=== PATIENT | female | born 1935 | race Caucasian/White ===

== ENCOUNTER 2016-04-25 15:54 | Emergency (ER) | payer OTHER, MEDICARE ==
[~2016-04-25] VITALS: Ht 165.1 cm; Wt 62.1 kg
[~2016-04-25 15:54] MED LIST: LISI-209 PO; PRO40 PO; PROP50TA3 PO
[2016-04-25 16:00] VITALS: BP 158/88; PULSE 85; RESP 17; TEMP 97.8; O2SAT 95
--- NOTE | 2016-04-25 16:00 | NUR ---
Placed in room 01. Placed on monitoring specialist, blood pressure machine and pulse oximeter. To gown for exam. Side rails up. Report given to CRISTOBAL Orellana.
--- NOTE | 2016-04-25 16:06 | NUR ---
ER MD Patel at bedside evaluating the patient
--- NOTE | 2016-04-25 16:10 | NUR ---
# 20 gauge angiocath placed to lh. Use of asceptic technique. Opsite placed over site. Blood return noted. Blood for lab drawn from site. Flushed with 10 cc of normal saline. No evidence of infiltration noted. Patient tolerated well.
[2016-04-25] MEDS ORDERED: NACL 0.9% 1,000 ML IV ONE (16:15)
[2016-04-25] MEDS ORDERED: MECLIZINE HCL 25 MG TABLET (ANITVERT) PO ONE (16:15)
[2016-04-25] MEDS ORDERED: METH10TA80 PO (16:20)
--- NOTE | 2016-04-25 16:20 | NUR ---
Medication reconciliation completed with information provided by patient. Any prior medication reconciliation on file was reviewed and corrected.
[2016-04-25] MEDS ORDERED: DEXAMETHASONE SOD PHOSPHATE 10 MG/ML VIAL IVP ONE (16:30)
[2016-04-25] MEDS ORDERED: PROCHLORPERAZINE EDISYLATE 10 MG/2 ML VIAL IVP ONE (16:30)
[2016-04-25] MEDS ORDERED: KETOROLAC TROMETHAMINE 30 MG VIAL IVP ONE (16:30)
[2016-04-25] MEDS ORDERED: ONDANSETRON HCL 4 MG/2 ML VIAL IVP ONE (16:30)
[2016-04-25 16:45] LABS: BASOPHILS % (AUTO) 0.2 % (0.0-2.0); EOSINOPHILS % (AUTO) 0.2 % (0.0-4.0); HEMATOCRIT 33.6 % (36-48); HEMOGLOBIN 10.7 g/dL (12.0-16.0); LYMPHOCYTES % (AUTO) 24.2 % (20.5-51.5); MEAN CORPUSCULAR HEMOGLOBIN 20 pg (27-31); MEAN CORPUSCULAR HGB CONC 32 % (32-36); MEAN CORPUSCULAR VOLUME 64 fL (79.0-98.0); MONOCYTES # (AUTO) 0.5 K/uL (0.0-1.0); MONOCYTES % (AUTO) 5.7 % (1.7-9.3); NEUTROPHILS # (AUTO) 5.7 K/uL (1.8-7.7); NEUTROPHILS % (AUTO) 69.7 % (40.0-70.0); PLATELET COUNT (AUTO) 187 K/uL (130-430); RED BLOOD CELL COUNT(AUTO) 5.26 MIL/uL (4.2-6.2); RED CELL DISTRIBUTION WIDTH 14.4 % (9.0-15.0); WHITE BLOOD COUNT (AUTO) 8.2 K/uL (4.8-10.8)
[2016-04-25 16:51] LABS: PROTHROMBIN TIME 11.2 SECS (9.5-12.5)
[2016-04-25 16:55] LABS: ANION GAP 3 (5-15); CALCIUM 9.2 mg/dL (8.4-11.0); CHLORIDE 103 mmol/L (98-107); CREATININE 0.81 mg/dL (0.55-1.30); GLUCOSE 128 mg/dL (70-99); POTASSIUM 4.4 mmol/L (3.5-5.1); SODIUM SERUM 137 mmol/L (136-145); UREA NITROGEN, BLOOD 22 mg/dL (8-21)
[2016-04-25 16:59] LABS: ALANINE AMINOTRANSFERASE 29 U/L (12-78); ASPARTATE AMINOTRANSFERASE 22 U/L (10-37); TOTAL BILIRUBIN 0.5 mg/dL (0.0-1.0); TOTAL PROTEIN, SERUM 7.3 g/dL (6.4-8.3)
--- NOTE | 2016-04-25 19:05 | NUR ---
ER at bedside examining patient.
--- NOTE | 2016-04-25 19:13 | NUR ---
Report given to CRISTOBAL Denson via SBAR method.
[2016-04-25] MEDS ORDERED: MAG HYDROX/AL HYDROX/SIMETH 30 ML, LIDOCAINE VISCOUS 2% 15ML (PO) 10 ML, BELLADONNA ALK... PO ONE ×3 (19:15)
[2016-04-25 19:30] VITALS: BP 138/71; PULSE 65; RESP 18; TEMP 97.8; O2SAT 98
--- NOTE | 2016-04-25 19:30 | NUR ---
Patient given written and verbal discharge instructions and verbalizes understanding. ER MD discussed with patient the results and treatment provided. Patient in stable condition. ID arm band removed. IV catheter removed intact and dressing applied, no active bleeding. Rx of PEPCID 40 MG, ACETAMINOPHEN 500 MG TAB AND ZOFRAN 4 MG ODT given. Patient educated on pain management and to follow up with PMD. Pain Scale 0/10. Opportunity for questions provided and answered.
== END 2016-04-25 19:30 | disposition home or self-care (01) ==
LOC: SED 15:54
DX: K80.50 Calculus of bile duct without cholangitis or cholecystitis without obstruction (principal); I10 Essential (primary) hypertension; R42 Dizziness and giddiness; Z90.49 Acquired absence of other specified parts of digestive tract; Z90.710 Acquired absence of both cervix and uterus
CPT/HCPCS: 36415; 70450; 74176; 80053; 83605; 83690; 85025; 85610; 85730; 87040; 96361; 96374; 96375; 99285; J0780; J1100; J1885; J2001; J2405; J7030; J8597

== ENCOUNTER 2019-04-11 12:24 | Emergency (ER) | payer OTHER, MEDICARE ==
[~2019-04-11] VITALS: Ht 157.5 cm; Wt 72.6 kg
[~2019-04-11 12:24] MED LIST changes: -LISI-209 PO; +LISI-219 PO; +METH10TA80 PO; -PRO40 PO; -PROP50TA3 PO
[2019-04-11 12:47] VITALS: BP_SYST 143
--- NOTE | 2019-04-11 12:49 | NUR ---
Patient to ER bed 2 to gown for evaluation. Side rails up. Report given to Anne JAIN.
--- NOTE | 2019-04-11 12:52 | NUR ---
ECG done at bedside as ordered by Dr. Ignacio. Patient tolerated the procedure well. Report given to
--- NOTE | 2019-04-11 12:55 | NUR ---
Patient arrived in the ED c/o hypotension, weakness, and not feeling good. Denied any chest pain or shortness of breath. Denied any fevers, nausea, vomiting, or chills. Patient is alert and oriented x4, respirations even and unlabored, speaking in full sentences, ambulating with a steady gait. VSS, pain level 0/10. Informed of wait time. Instructed to notify ED staff for any changes in condition or worsening of symptoms. Patient verbalized understanding.
--- NOTE | 2019-04-11 13:07 | NUR ---
# 22 gauge angiocath placed to LFA. Use of asceptic technique. Opsite placed over site. Blood return noted. Blood for lab drawn from site. Flushed with 10 cc of normal saline. No evidence of infiltration noted. Patient tolerated well.
--- NOTE | 2019-04-11 13:17 | NUR ---
ER Dr. Ignacio at bedside examining patient.
[2019-04-11] MEDS ORDERED: MED4 PO (13:28)
[2019-04-11] MEDS ORDERED: AMLO5TAB4 PO (13:28)
[2019-04-11] MEDS ORDERED: IBUP-1619 PO (13:28)
[2019-04-11] MEDS ORDERED: FURO-149 PO (13:28)
[2019-04-11] MEDS ORDERED: FAMO20TA8 PO (13:28)
[2019-04-11] MEDS ORDERED: LISI-652 PO (13:28)
--- NOTE | 2019-04-11 13:35 | NUR ---
Patient ambulated to the bathroom with a steady gait. Urine specimen collected. Patient tolerated the activity well.
--- NOTE | 2019-04-11 13:38 | NUR ---
X-ray done at bedside as ordered by Dr. Ignacio. Patient tolerated the procedure well.
[2019-04-11 14:16] LABS: BASOPHILS % (AUTO) 0.3 % (0.0-2.0); EOSINOPHILS % (AUTO) 0.5 % (0.0-4.0); HEMATOCRIT 30.8 % (36-48); HEMOGLOBIN 9.7 g/dL (12.0-16.0); LYMPHOCYTES # (AUTO) 1.5 K/uL (1.0-5.5); LYMPHOCYTES % (AUTO) 20.8 % (20.5-51.5); MEAN CORPUSCULAR HEMOGLOBIN 20 pg (27-31); MEAN CORPUSCULAR HGB CONC 32 % (32-36); MEAN CORPUSCULAR VOLUME 65 fL (79.0-98.0); MONOCYTES # (AUTO) 0.6 K/uL (0.0-1.0); MONOCYTES % (AUTO) 7.9 % (1.7-9.3); NEUTROPHILS # (AUTO) 5.1 K/uL (1.8-7.7); NEUTROPHILS % (AUTO) 70.5 % (40.0-70.0); PLATELET COUNT (AUTO) 225 K/uL (130-430); RED BLOOD CELL COUNT(AUTO) 4.76 MIL/uL (4.2-6.2); WHITE BLOOD COUNT (AUTO) 7.3 K/uL (4.8-10.8)
[2019-04-11 14:19] LABS: ANION GAP 5 (5-15); CALCIUM 8.8 mg/dL (8.4-11.0); CHLORIDE 99 mmol/L (98-107); CREATININE 0.74 mg/dL (0.55-1.30); GLUCOSE 96 mg/dL (70-99); POTASSIUM 4.7 mmol/L (3.5-5.1); SODIUM SERUM 134 mmol/L (136-145); UREA NITROGEN, BLOOD 22 mg/dL (8-21)
[2019-04-11 14:25] LABS: ALANINE AMINOTRANSFERASE 26 U/L (12-78); ALBUMIN 3.5 g/dL (3.4-4.8); ASPARTATE AMINOTRANSFERASE 27 U/L (10-37); LIPASE 143 U/L (73-393); TOTAL BILIRUBIN 0.4 mg/dL (0.0-1.0)
--- NOTE | 2019-04-11 15:45 | NUR ---
Patient given written and verbal discharge instructions and verbalizes understanding. ER MD discussed with patient the results and treatment provided. Patient in stable condition. ID arm band removed. IV catheter removed intact and dressing applied, no active bleeding. Rx of Tramadol given. Patient educated on pain management and to follow up with PMD. Pain Scale 0/10. Opportunity for questions provided and answered. Medication side effect fact sheet provided.
[2019-04-11 16:03] VITALS: BP_SYST 138
== END 2019-04-11 16:03 | disposition home or self-care (01) ==
LOC: SED 12:24
DX: R53.1 Weakness (principal); M19.90 Unspecified osteoarthritis, unspecified site; I10 Essential (primary) hypertension; Z79.899 Other long term (current) drug therapy; Z90.49 Acquired absence of other specified parts of digestive tract
CPT/HCPCS: 36415; 71045; 80053; 82550-TC; 83690-TC; 84484; 85025; 93005; 99285

== ENCOUNTER 2021-04-17 15:05 | Emergency (ER) | payer OTHER, MEDICARE ==
[~2021-04-17] VITALS: Ht 165.1 cm; Wt 53.1 kg
[~2021-04-17 15:05] MED LIST changes: +AMLO5TAB4 PO; +FAMO20TA8 PO; +FURO-149 PO; +IBUP-1619 PO; +LISI-652 PO; +MED4 PO
[2021-04-17 15:10] VITALS: BP_SYST 149
--- NOTE | 2021-04-17 15:10 | NUR ---
PT TRIAGED AND PLACED IN WAITING ROOM FOR AVAILABLE BED IN MAIN ED
--- NOTE | 2021-04-17 15:15 | NUR ---
PT BIB SON FROM HOME C/O CHRONIC BACK PAIN, HX OF ARTHRITIS, TAKING TYLENOL AND IBUPROFEN AT HOME WITHOUT RELIEF. HTN AT HOME, BP UPON ARRIVAL 149/78. PT IN WHEELCHAIR. AAOX3, VSS
--- NOTE | 2021-04-17 16:09 | NUR ---
ER DR. KAHN EXAMINING PT IN TRIAGE
[2021-04-17] MEDS ORDERED: CYCL10TA24 PO (16:22)
[2021-04-17] MEDS ORDERED: CYCLOBENZAPRINE HCL 10 MG TABLET (FLEXERIL) PO ONE (16:30)
--- NOTE | 2021-04-17 16:44 | NUR ---
Patient given written and verbal discharge instructions and verbalizes understanding. ER MD discussed with patient the results and treatment provided. Patient in stable condition. ID arm band removed. Rx of FLEXRIL given. Patient educated on pain management and to follow up with PMD. Pain Scale 0/10. Opportunity for questions provided and answered. Medication side effect fact sheet provided.
[2021-04-17 16:49] VITALS: BP_SYST 149
== END 2021-04-17 16:44 | disposition home or self-care (01) ==
LOC: SED 15:05
DX: M54.50 Low back pain, unspecified (principal); I10 Essential (primary) hypertension; Z79.899 Other long term (current) drug therapy
CPT/HCPCS: 99283

== ENCOUNTER 2021-04-23 14:24 | Outpatient (CLI) | payer OTHER, MEDICARE ==
[~2021-04-23 14:24] MED LIST changes: +CYCL10TA24 PO
== END 2021-04-23 20:12 | disposition home or self-care (01) ==
LOC: SUS 14:24
DX: N28.1 Cyst of kidney, acquired (principal); R10.9 Unspecified abdominal pain; R10.2 Pelvic and perineal pain; I70.90 Unspecified atherosclerosis
CPT/HCPCS: 76700-TC; 76856-TC

== ENCOUNTER 2021-04-30 16:53 | Emergency (ER) | payer OTHER, MEDICARE ==
[~2021-04-30] VITALS: Ht 165.1 cm; Wt 51.3 kg
[2021-04-30 16:53] VITALS: BP_SYST 156
[2021-04-30] MEDS ORDERED: OXYCODONE/ACETAMINOPHEN 5-325 TABLET PO ONE (18:15)
[2021-04-30] MEDS ORDERED: HYDR-3917 PO (18:51)
[2021-04-30 18:58] VITALS: BP_SYST 156
== END 2021-04-30 18:58 | disposition home or self-care (01) ==
LOC: SED 16:53
DX: M54.50 Low back pain, unspecified (principal); I10 Essential (primary) hypertension
CPT/HCPCS: 99283

== ENCOUNTER 2022-11-23 09:31 | Inpatient (IN) | payer MEDICARE, OTHER ==
[~2022-11-23] VITALS: Ht 162.6 cm; Wt 46.4 kg
[~2022-11-23 09:31] MED LIST changes: +HYDR-3917 PO
[2022-11-23 09:42] VITALS: BP_SYST 138; PULSE 72; RESP 20; TEMP 98.3; O2SAT 97
[2022-11-23 10:13] LABS: BASOPHILS % (AUTO) 0.4 % (0.0-2.0); EOSINOPHILS % (AUTO) 0.3 % (0.0-4.0); HEMATOCRIT 31.3 % (36-48); HEMOGLOBIN 9.8 g/dL (12.0-16.0); LYMPHOCYTES # (AUTO) 0.7 K/uL (1.0-5.5); LYMPHOCYTES % (AUTO) 6.3 % (20.5-51.5); MEAN CORPUSCULAR HEMOGLOBIN 21 pg (27-31); MEAN CORPUSCULAR HGB CONC 31 % (32-36); MEAN CORPUSCULAR VOLUME 67 fL (79.0-98.0); MONOCYTES # (AUTO) 0.8 K/uL (0.0-1.0); MONOCYTES % (AUTO) 6.8 % (1.7-9.3); NEUTROPHILS # (AUTO) 9.8 K/uL (1.8-7.7); NEUTROPHILS % (AUTO) 86.2 % (40.0-70.0); PLATELET COUNT (AUTO) 274 K/uL (130-430); RED BLOOD CELL COUNT(AUTO) 4.67 MIL/uL (4.2-6.2); WHITE BLOOD COUNT (AUTO) 11.3 K/uL (4.8-10.8)
[2022-11-23 10:27] LABS: ANION GAP 11 (5-15); CALCIUM 9.3 mg/dL (8.4-11.0); CARBON DIOXIDE 27 mmol/L (23-29); CHLORIDE 100 mmol/L (98-107); CREATININE 1.42 mg/dL (0.55-1.30); GLUCOSE 115 mg/dL (74-106); POTASSIUM 4.1 mmol/L (3.5-5.1); SODIUM SERUM 138 mmol/L (136-145); UREA NITROGEN, BLOOD 62 mg/dL (8-21)
[2022-11-23 10:30] LABS: PROTHROMBIN TIME 10.4 SECS (9.5-12.5)
[2022-11-23 10:37] LABS: ACETONE, SERUM NEGATIVE (NEGATIVE)
[2022-11-23 10:40] LABS: ALANINE AMINOTRANSFERASE 22 U/L (12-78); ALBUMIN 3.8 g/dL (3.4-4.8); ASPARTATE AMINOTRANSFERASE 21 U/L (10-37); CREATINE KINASE, TOTAL 123 U/L (26-192); FREE T4 (FREE THYROXINE) 0.8 ng/dL (0.6-1.6); LIPASE 58 U/L (73-393); THYROID STIMULATING HORMONE 2.44 uIu/mL (0.34-4.82); TOTAL BILIRUBIN 0.8 mg/dL (0.0-1.0); TOTAL PROTEIN, SERUM 7.3 g/dL (6.4-8.3)
[2022-11-23 11:51] LABS: ANISOCYTOSIS 1+; HYPOCHROMASIA 1+; OVALOCYTES FEW
[2022-11-23 12:12] LABS: BILIRUBIN,URINE NEGATIVE (NEGATIVE); BLOOD, URINE 2+ (NEGATIVE); CLARITY/URINE Cloudy (CLEAR); COLOR,URINE YELLOW (YELLOW); GLUCOSE,URINE NEGATIVE (NEGATIVE); KETONES,URINE NEGATIVE (NEGATIVE); LEUKOCYTE ESTERASE ,URINE 3+ (NEGATIVE); NITRITE, URINE POSITIVE (NEGATIVE); PROTEIN URINE 1+ (NEGATIVE); UROBILINOGEN,URINE 0.2 (0.2-1.0)
[2022-11-23 12:37] LABS: BACTERIA,URINE MODERATE /HPF (None Seen); WBC,URINE 50-80 /HPF (0-3)
[2022-11-23] MEDS ORDERED: ASPIRIN 81 MG TABLET(ECOTRIN) PO ONE (12:45)
[2022-11-23] MEDS ORDERED: cefTRIAXone 1 GM in D5W 50 ML IV ONE (12:45)
[2022-11-23] MEDS ORDERED: NACL 0.9% 1,000 ML IV ONE (12:45)
[2022-11-23] MEDS ORDERED: cefTRIAXone 1 GM VIAL ONE (13:03)
[2022-11-23] MEDS ORDERED: DOCUSATE SODIUM 100 MG CAPSULE PO PRN (14:00)
[2022-11-23] MEDS ORDERED: MORPHINE 2 MG/ML INJ. SYRINGE IVP PRN (14:00)
[2022-11-23] MEDS ORDERED: POTASSIUM CHLORIDE 20 MEQ TAB.PRT.SR PO PRN (14:00)
[2022-11-23] MEDS ORDERED: ACETAMINOPHEN 325 MG TABLET PO PRN (14:00)
[2022-11-23] MEDS ORDERED: ONDANSETRON HCL 4 MG/2 ML VIAL IVP PRN (14:00)
[2022-11-23] MEDS ORDERED: MAGNESIUM SULFATE 50 ML IV PRN (14:00)
[2022-11-23] MEDS ORDERED: MUPIROCIN 2% TOPICAL OINTMENT 22 GM NS PRN (14:00)
[2022-11-23] MEDS ORDERED: NALOXONE HCL 0.4 MG/ML AMP (NARCAN) IVP PRN ×2 (14:00)
[2022-11-23] MEDS ORDERED: amLODIPine BESYLATE 5 MG TABLET PO ONE (15:30)
[2022-11-23] MEDS: ACETAMINOPHEN 325 MG TABLET PO PRN ×2 (17:07→18:26)
[2022-11-23 20:00] VITALS: BP_SYST 142; PULSE 69; RESP 20; TEMP 97.8; O2SAT 97
[2022-11-23] MEDS: HEPARIN SODIUM,PORCINE 5,000 UNITS/ML VIAL SUBCUT SCH (20:14)
[2022-11-23] MEDS: NACL 0.9% 1,000 ML IV SCH (20:21)
[2022-11-24] VITALS (9 sets, daily range): BP systolic 133–160; PULSE 73–89; RESP 16–18; TEMP 96.8–98.4; O2SAT 55–97
[2022-11-24] MEDS: ZOLPIDEM TARTRATE 5 MG TABLET PO PRN ×2 (00:21→23:37)
[2022-11-24] MEDS: MORPHINE 2 MG/ML INJ. SYRINGE IVP PRN (03:38)
[2022-11-24 06:36] LABS: BASOPHILS % (AUTO) 0.4 % (0.0-2.0); EOSINOPHILS # (AUTO) 0.1 K/uL (0.0-0.4); EOSINOPHILS % (AUTO) 0.8 % (0.0-4.0); HEMATOCRIT 29.7 % (36-48); HEMOGLOBIN 9.4 g/dL (12.0-16.0); LYMPHOCYTES # (AUTO) 0.7 K/uL (1.0-5.5); LYMPHOCYTES % (AUTO) 6.8 % (20.5-51.5); MEAN CORPUSCULAR HEMOGLOBIN 21 pg (27-31); MEAN CORPUSCULAR HGB CONC 32 % (32-36); MEAN CORPUSCULAR VOLUME 67 fL (79.0-98.0); MONOCYTES # (AUTO) 0.8 K/uL (0.0-1.0); MONOCYTES % (AUTO) 7.2 % (1.7-9.3); NEUTROPHILS % (AUTO) 84.8 % (40.0-70.0); PLATELET COUNT (AUTO) 254 K/uL (130-430); RED BLOOD CELL COUNT(AUTO) 4.43 MIL/uL (4.2-6.2); WHITE BLOOD COUNT (AUTO) 10.6 K/uL (4.8-10.8)
[2022-11-24 06:59] LABS: ANION GAP 10 (5-15); CALCIUM 8.7 mg/dL (8.4-11.0); CARBON DIOXIDE 24 mmol/L (23-29); CHLORIDE 108 mmol/L (98-107); CREATININE 0.95 mg/dL (0.55-1.30); GLUCOSE 122 mg/dL (74-106); POTASSIUM 4.4 mmol/L (3.5-5.1); SODIUM SERUM 142 mmol/L (136-145); UREA NITROGEN, BLOOD 37 mg/dL (8-21)
[2022-11-24 07:57] LABS: RED CELL DISTRIBUTION WIDTH 16.1 % (9.0-15.0)
[2022-11-24] MEDS ORDERED: amLODIPine BESYLATE 5 MG TABLET PO SCH (09:00)
[2022-11-24] MEDS: FUROSEMIDE 40 MG TABLET PO SCH (09:19)
[2022-11-24] MEDS: HEPARIN SODIUM,PORCINE 5,000 UNITS/ML VIAL SUBCUT SCH ×2 (09:20→21:44)
[2022-11-24] MEDS: NACL 0.9% 1,000 ML IV SCH ×3 (09:23→23:38)
[2022-11-24 09:43] LABS: TOTAL IRON BIND. CAPACITY 211 ug/dL (250-450)
[2022-11-24] MEDS ORDERED: FERROUS SULFATE 325 MG TABLET.DR PO ONE (10:15)
[2022-11-24] MEDS: methIMAzole 5 MG TABLET PO SCH (12:00)
[2022-11-24] MEDS: amLODIPine BESYLATE 10 MG TABLET PO SCH (12:01)
[2022-11-24] MEDS: cefTRIAXone 1 GM IVPB PREMIX 50 ML IV SCH (12:06)
[2022-11-24] MEDS: IPRATROPIUM/ALBUTEROL SULFATE 3 ML AMPUL.NEB (DUONEB) INH PRN (16:56)
[2022-11-24] MEDS ORDERED: FERROUS SULFATE 325 MG TABLET.DR PO SCH (21:00)
[2022-11-25] VITALS (7 sets, daily range): BP systolic 133–153; PULSE 71–93; RESP 16–18; TEMP 96.6–98.2; O2SAT 89–97
[2022-11-25] MEDS: MORPHINE 2 MG/ML INJ. SYRINGE IVP PRN (05:57)
[2022-11-25 07:52] LABS: BASOPHILS # (AUTO) 0.1 K/uL (0.0-0.2); BASOPHILS % (AUTO) 0.3 % (0.0-2.0); HEMATOCRIT 29.4 % (36-48); HEMOGLOBIN 9.2 g/dL (12.0-16.0); LYMPHOCYTES % (AUTO) 5.9 % (20.5-51.5); MEAN CORPUSCULAR HEMOGLOBIN 21 pg (27-31); MEAN CORPUSCULAR HGB CONC 31 % (32-36); MEAN CORPUSCULAR VOLUME 68 fL (79.0-98.0); MONOCYTES # (AUTO) 1.3 K/uL (0.0-1.0); MONOCYTES % (AUTO) 7.8 % (1.7-9.3); NEUTROPHILS # (AUTO) 14.9 K/uL (1.8-7.7); RED CELL DISTRIBUTION WIDTH 16.5 % (9.0-15.0)
[2022-11-25 08:00] LABS: ANION GAP 10 (5-15); CALCIUM 7.9 mg/dL (8.4-11.0); CARBON DIOXIDE 23 mmol/L (23-29); CHLORIDE 104 mmol/L (98-107); CREATININE 0.96 mg/dL (0.55-1.30); GLUCOSE 123 mg/dL (74-106); POTASSIUM 3.8 mmol/L (3.5-5.1); SODIUM SERUM 137 mmol/L (136-145); UREA NITROGEN, BLOOD 33 mg/dL (8-21)
[2022-11-25 08:07] LABS: FOLATE (FOLIC ACID) 12.7 ng/mL (>3.0)
[2022-11-25 08:11] LABS: WHITE BLOOD COUNT (AUTO) 17.3 K/uL (4.8-10.8)
[2022-11-25 08:54] LABS: PLATELET COUNT (AUTO) 283 K/uL (130-430)
[2022-11-25] MEDS: FUROSEMIDE 40 MG TABLET PO SCH (09:52)
[2022-11-25] MEDS: methIMAzole 5 MG TABLET PO SCH (09:52)
[2022-11-25] MEDS: amLODIPine BESYLATE 10 MG TABLET PO SCH (09:53)
[2022-11-25] MEDS: HEPARIN SODIUM,PORCINE 5,000 UNITS/ML VIAL SUBCUT SCH ×2 (09:55→20:39)
[2022-11-25] MEDS: ACETAMINOPHEN 325 MG TABLET PO PRN ×2 (13:07→20:38)
[2022-11-25] MEDS: cefTRIAXone 1 GM IVPB PREMIX 50 ML IV SCH (13:48)
[2022-11-25] MEDS: metroNIDAZOLE 500 mg/NS 100 ML IV SCH ×2 (15:22→21:39)
[2022-11-25] MEDS: NACL 0.9% 1,000 ML IV SCH (19:00)
[2022-11-25] MEDS: IPRATROPIUM/ALBUTEROL SULFATE 3 ML AMPUL.NEB (DUONEB) INH PRN (19:51)
[2022-11-25] MEDS: ZOLPIDEM TARTRATE 5 MG TABLET PO PRN (23:51)
[2022-11-26] VITALS (26 sets, daily range): BP systolic 116–155; PULSE 78–109; RESP 17–39; TEMP 97.7–98.6; O2SAT 82–96
[2022-11-26] MEDS: IPRATROPIUM/ALBUTEROL SULFATE 3 ML AMPUL.NEB (DUONEB) INH PRN ×2 (05:32→07:27)
[2022-11-26] MEDS: metroNIDAZOLE 500 mg/NS 100 ML IV SCH ×3 (06:08→21:20)
[2022-11-26 06:33] LABS: BASOPHILS % (AUTO) 0.2 % (0.0-2.0); HEMATOCRIT 27.2 % (36-48); HEMOGLOBIN 8.6 g/dL (12.0-16.0); LYMPHOCYTES # (AUTO) 0.8 K/uL (1.0-5.5); LYMPHOCYTES % (AUTO) 5.4 % (20.5-51.5); MEAN CORPUSCULAR HEMOGLOBIN 21 pg (27-31); MEAN CORPUSCULAR HGB CONC 32 % (32-36); MEAN CORPUSCULAR VOLUME 67 fL (79.0-98.0); MONOCYTES # (AUTO) 1.1 K/uL (0.0-1.0); MONOCYTES % (AUTO) 7.3 % (1.7-9.3); NEUTROPHILS # (AUTO) 13.4 K/uL (1.8-7.7); NEUTROPHILS % (AUTO) 87.1 % (40.0-70.0); PLATELET COUNT (AUTO) 235 K/uL (130-430); RED BLOOD CELL COUNT(AUTO) 4.05 MIL/uL (4.2-6.2); WHITE BLOOD COUNT (AUTO) 15.4 K/uL (4.8-10.8)
[2022-11-26 07:06] LABS: ANION GAP 10 (5-15); CALCIUM 7.6 mg/dL (8.4-11.0); CARBON DIOXIDE 22 mmol/L (23-29); CHLORIDE 102 mmol/L (98-107); CREATININE 1.05 mg/dL (0.55-1.30); GLUCOSE 135 mg/dL (74-106); POTASSIUM 3.7 mmol/L (3.5-5.1); SODIUM SERUM 134 mmol/L (136-145); UREA NITROGEN, BLOOD 34 mg/dL (8-21)
[2022-11-26 07:16] LABS: RED CELL DISTRIBUTION WIDTH 16.1 % (9.0-15.0)
[2022-11-26] MEDS: HEPARIN SODIUM,PORCINE 5,000 UNITS/ML VIAL SUBCUT SCH ×2 (09:16→21:19)
[2022-11-26] MEDS: methIMAzole 5 MG TABLET PO SCH (09:16)
[2022-11-26] MEDS: amLODIPine BESYLATE 10 MG TABLET PO SCH (09:17)
[2022-11-26] MEDS: FUROSEMIDE 40 MG TABLET PO SCH (09:17)
[2022-11-26] MEDS ORDERED: IPRATROPIUM/ALBUTEROL SULFATE 3 ML AMPUL.NEB (DUONEB) INH PRN (09:30)
[2022-11-26 09:38] LABS: BLOOD GAS BASE EXCESS -3.4 mmol/L (-3.0-3.0); BLOOD GAS PO2 71.4 mmHg (75.0-100.0)
[2022-11-26 09:44] LABS: BLOOD GAS HCO3 17.2 mmol/L (21.0-27.0); BLOOD GAS PH 7.511 (7.350-7.450)
[2022-11-26 09:45] LABS: ALLEN'S TEST POSITIVE (P)
[2022-11-26] MEDS ORDERED: FUROSEMIDE 40 MG/4 ML VIAL IVP ONE (10:00)
[2022-11-26] MEDS: IPRATROPIUM/ALBUTEROL SULFATE 3 ML AMPUL.NEB (DUONEB) INH SCH ×4 (11:27→23:15)
[2022-11-26] MEDS: cefTRIAXone 1 GM IVPB PREMIX 50 ML IV SCH (12:14)
[2022-11-26] MEDS: NACL 0.9% 1,000 ML IV SCH (16:12)
[2022-11-26] MEDS: LORazepam 2 MG/ML VIAL IVP PRN (16:13)
[2022-11-27] VITALS (33 sets, daily range): BP systolic 110–147; PULSE 83–104; RESP 17–31; TEMP 97.5–98.2; O2SAT 86–98
[2022-11-27] MEDS: IPRATROPIUM/ALBUTEROL SULFATE 3 ML AMPUL.NEB (DUONEB) INH SCH ×6 (02:15→23:12)
[2022-11-27 05:07] LABS: BASOPHILS % (AUTO) 0.2 % (0.0-2.0); EOSINOPHILS % (AUTO) 0.3 % (0.0-4.0); HEMATOCRIT 24.5 % (36-48); HEMOGLOBIN 7.8 g/dL (12.0-16.0); LYMPHOCYTES # (AUTO) 0.5 K/uL (1.0-5.5); LYMPHOCYTES % (AUTO) 3.8 % (20.5-51.5); MEAN CORPUSCULAR HEMOGLOBIN 22 pg (27-31); MEAN CORPUSCULAR HGB CONC 32 % (32-36); MEAN CORPUSCULAR VOLUME 67 fL (79.0-98.0); MONOCYTES # (AUTO) 0.8 K/uL (0.0-1.0); MONOCYTES % (AUTO) 6.1 % (1.7-9.3); NEUTROPHILS # (AUTO) 11.9 K/uL (1.8-7.7); NEUTROPHILS % (AUTO) 89.6 % (40.0-70.0); PLATELET COUNT (AUTO) 209 K/uL (130-430); RED BLOOD CELL COUNT(AUTO) 3.64 MIL/uL (4.2-6.2); WHITE BLOOD COUNT (AUTO) 13.3 K/uL (4.8-10.8)
[2022-11-27 05:27] LABS: ANION GAP 11 (5-15); CALCIUM 7.5 mg/dL (8.4-11.0); CARBON DIOXIDE 22 mmol/L (23-29); CHLORIDE 109 mmol/L (98-107); CREATININE 1.04 mg/dL (0.55-1.30); GLUCOSE 117 mg/dL (74-106); POTASSIUM 3.1 mmol/L (3.5-5.1); SODIUM SERUM 142 mmol/L (136-145); UREA NITROGEN, BLOOD 36 mg/dL (8-21)
[2022-11-27] MEDS: metroNIDAZOLE 500 mg/NS 100 ML IV SCH ×3 (05:49→21:09)
[2022-11-27] MEDS ORDERED: POTASSIUM CHLORIDE 20 MEQ/PKT PACKET PO ONE (08:00)
[2022-11-27] MEDS: amLODIPine BESYLATE 10 MG TABLET PO SCH (09:00)
[2022-11-27] MEDS: HEPARIN SODIUM,PORCINE 5,000 UNITS/ML VIAL SUBCUT SCH ×2 (09:00→21:11)
[2022-11-27] MEDS ORDERED: FUROSEMIDE 40 MG/4 ML VIAL IVP SCH (09:00)
[2022-11-27] MEDS: methIMAzole 5 MG TABLET PO SCH (09:26)
[2022-11-27] MEDS: LORazepam 2 MG/ML VIAL IVP PRN ×2 (12:38→21:58)
[2022-11-27] MEDS: cefTRIAXone 1 GM IVPB PREMIX 50 ML IV SCH (12:39)
[2022-11-27] MEDS ORDERED: IOHEXOL 350 mgI/mL, 150 ML INFUS..BTL IV ONE (13:04)
[2022-11-27] MEDS: NACL 0.9% 1,000 ML IV SCH (14:21)
[2022-11-28] VITALS (30 sets, daily range): BP systolic 105–150; PULSE 86–105; RESP 18–37; TEMP 97.1–98.1; O2SAT 83–98
[2022-11-28] MEDS: IPRATROPIUM/ALBUTEROL SULFATE 3 ML AMPUL.NEB (DUONEB) INH SCH ×6 (02:39→23:25)
[2022-11-28] MEDS: LORazepam 2 MG/ML VIAL IVP PRN ×2 (03:15→17:18)
[2022-11-28 05:27] LABS: BASOPHILS % (AUTO) 0.2 % (0.0-2.0); EOSINOPHILS # (AUTO) 0.1 K/uL (0.0-0.4); EOSINOPHILS % (AUTO) 0.9 % (0.0-4.0); HEMATOCRIT 24.4 % (36-48); HEMOGLOBIN 7.7 g/dL (12.0-16.0); LYMPHOCYTES # (AUTO) 0.5 K/uL (1.0-5.5); LYMPHOCYTES % (AUTO) 4.9 % (20.5-51.5); MEAN CORPUSCULAR HEMOGLOBIN 21 pg (27-31); MEAN CORPUSCULAR HGB CONC 32 % (32-36); MEAN CORPUSCULAR VOLUME 67 fL (79.0-98.0); MONOCYTES # (AUTO) 0.6 K/uL (0.0-1.0); MONOCYTES % (AUTO) 5.6 % (1.7-9.3); NEUTROPHILS # (AUTO) 9.8 K/uL (1.8-7.7); NEUTROPHILS % (AUTO) 88.4 % (40.0-70.0); PLATELET COUNT (AUTO) 225 K/uL (130-430); RED BLOOD CELL COUNT(AUTO) 3.62 MIL/uL (4.2-6.2); RED CELL DISTRIBUTION WIDTH 16.2 % (9.0-15.0)
[2022-11-28 05:46] LABS: ALANINE AMINOTRANSFERASE 17 U/L (12-78); ALBUMIN 2.4 g/dL (3.4-4.8); ANION GAP 10 (5-15); ASPARTATE AMINOTRANSFERASE 25 U/L (10-37); CALCIUM 7.3 mg/dL (8.4-11.0); CARBON DIOXIDE 22 mmol/L (23-29); CHLORIDE 112 mmol/L (98-107); GLUCOSE 115 mg/dL (74-106); POTASSIUM 3.4 mmol/L (3.5-5.1); SODIUM SERUM 144 mmol/L (136-145); TOTAL BILIRUBIN 0.7 mg/dL (0.0-1.0); TOTAL PROTEIN, SERUM 5.4 g/dL (6.4-8.3); UREA NITROGEN, BLOOD 28 mg/dL (8-21)
[2022-11-28] MEDS: metroNIDAZOLE 500 mg/NS 100 ML IV SCH ×3 (05:46→21:18)
[2022-11-28 06:32] LABS: TOTAL IRON BIND. CAPACITY 126 ug/dL (250-450)
[2022-11-28] MEDS: amLODIPine BESYLATE 10 MG TABLET PO SCH (09:09)
[2022-11-28] MEDS: methIMAzole 5 MG TABLET PO SCH (09:10)
[2022-11-28] MEDS: HEPARIN SODIUM,PORCINE 5,000 UNITS/ML VIAL SUBCUT SCH ×2 (09:14→21:21)
[2022-11-28] MEDS: FUROSEMIDE 100 MG in D5W 90 ML IV SCH (11:47)
[2022-11-28] MEDS: cefTRIAXone 1 GM IVPB PREMIX 50 ML IV SCH (13:31)
[2022-11-28] MEDS: NACL 0.9% 1,000 ML IV SCH (16:50)
[2022-11-28] MEDS: D5/0.45 NS 1,000 ML IV SCH (19:30)
[2022-11-29] VITALS (28 sets, daily range): BP systolic 102–129; PULSE 80–139; RESP 24–33; TEMP 96.2–97.2; O2SAT 83–99
[2022-11-29] MEDS: LORazepam 2 MG/ML VIAL IVP PRN ×2 (00:34→12:52)
[2022-11-29] MEDS: IPRATROPIUM/ALBUTEROL SULFATE 3 ML AMPUL.NEB (DUONEB) INH SCH ×3 (03:15→23:15)
[2022-11-29 06:29] LABS: BASOPHILS % (AUTO) 0.3 % (0.0-2.0); EOSINOPHILS # (AUTO) 0.1 K/uL (0.0-0.4); HEMATOCRIT 28.5 % (36-48); HEMOGLOBIN 9.1 g/dL (12.0-16.0); LYMPHOCYTES # (AUTO) 0.7 K/uL (1.0-5.5); LYMPHOCYTES % (AUTO) 5.3 % (20.5-51.5); MEAN CORPUSCULAR HEMOGLOBIN 21 pg (27-31); MEAN CORPUSCULAR HGB CONC 32 % (32-36); MEAN CORPUSCULAR VOLUME 67 fL (79.0-98.0); MONOCYTES # (AUTO) 0.7 K/uL (0.0-1.0); MONOCYTES % (AUTO) 5.4 % (1.7-9.3); NEUTROPHILS # (AUTO) 11.5 K/uL (1.8-7.7); PLATELET COUNT (AUTO) 258 K/uL (130-430); RED BLOOD CELL COUNT(AUTO) 4.28 MIL/uL (4.2-6.2); RED CELL DISTRIBUTION WIDTH 16.2 % (9.0-15.0); WHITE BLOOD COUNT (AUTO) 13.1 K/uL (4.8-10.8)
[2022-11-29 06:40] LABS: ALANINE AMINOTRANSFERASE 19 U/L (12-78); ALBUMIN 2.8 g/dL (3.4-4.8); ANION GAP 12 (5-15); ASPARTATE AMINOTRANSFERASE 21 U/L (10-37); CALCIUM 7.6 mg/dL (8.4-11.0); CARBON DIOXIDE 24 mmol/L (23-29); CHLORIDE 108 mmol/L (98-107); CREATININE 0.98 mg/dL (0.55-1.30); GLUCOSE 133 mg/dL (74-106); PHOSPHORUS 3.4 mg/dL (2.7-4.5); POTASSIUM 3.2 mmol/L (3.5-5.1); SODIUM SERUM 144 mmol/L (136-145); TOTAL BILIRUBIN 0.7 mg/dL (0.0-1.0); TOTAL PROTEIN, SERUM 6.1 g/dL (6.4-8.3); UREA NITROGEN, BLOOD 25 mg/dL (8-21)
[2022-11-29] MEDS: FUROSEMIDE 100 MG in D5W 90 ML IV SCH (06:44)
[2022-11-29] MEDS: metroNIDAZOLE 500 mg/NS 100 ML IV SCH ×3 (06:56→21:13)
[2022-11-29] MEDS: methIMAzole 5 MG TABLET PO SCH (08:39)
[2022-11-29] MEDS: amLODIPine BESYLATE 10 MG TABLET PO SCH (08:39)
[2022-11-29] MEDS: HEPARIN SODIUM,PORCINE 5,000 UNITS/ML VIAL SUBCUT SCH ×2 (08:44→20:48)
[2022-11-29] MEDS ORDERED: METOPROLOL TARTRATE 5 MG/5 ML VIAL IVP ONE (09:00)
[2022-11-29 09:26] LABS: ANISOCYTOSIS 1+; HYPOCHROMASIA 1+
[2022-11-29] MEDS ORDERED: AMIODARONE HCL 200 MG TABLET PO ONE (11:00)
[2022-11-29] MEDS ORDERED: METOPROLOL TARTRATE 5 MG/5 ML VIAL IVP PRN (11:15)
[2022-11-29] MEDS: cefTRIAXone 1 GM IVPB PREMIX 50 ML IV SCH (12:52)
[2022-11-29] MEDS: D5/0.45 NS 1,000 ML IV SCH (16:50)
[2022-11-29] MEDS: METOPROLOL TARTRATE 5 MG/5 ML VIAL IVP PRN ×2 (17:15→22:29)
[2022-11-29] MEDS: FUROSEMIDE 20 MG/2 ML VIAL IVP SCH (20:30)
[2022-11-29] MEDS ORDERED: AMIODARONE HCL 200 MG TABLET PO SCH (21:00)
[2022-11-30] VITALS (18 sets, daily range): BP systolic 98–132; PULSE 80–132; RESP 16–39; TEMP 96.2–97.7; O2SAT 86–98
[2022-11-30] MEDS: METOPROLOL TARTRATE 5 MG/5 ML VIAL IVP PRN ×3 (02:43→11:23)
[2022-11-30] MEDS: IPRATROPIUM/ALBUTEROL SULFATE 3 ML AMPUL.NEB (DUONEB) INH SCH ×4 (03:00→15:46)
[2022-11-30] MEDS: D5/0.45 NS 1,000 ML IV SCH (03:40)
[2022-11-30] MEDS: metroNIDAZOLE 500 mg/NS 100 ML IV SCH ×2 (05:07→14:06)
[2022-11-30 05:21] LABS: BASOPHILS % (AUTO) 0.1 % (0.0-2.0); EOSINOPHILS % (AUTO) 0.2 % (0.0-4.0); HEMATOCRIT 29.7 % (36-48); HEMOGLOBIN 9.5 g/dL (12.0-16.0); LYMPHOCYTES # (AUTO) 0.7 K/uL (1.0-5.5); LYMPHOCYTES % (AUTO) 4.5 % (20.5-51.5); MEAN CORPUSCULAR HEMOGLOBIN 21 pg (27-31); MEAN CORPUSCULAR HGB CONC 32 % (32-36); MEAN CORPUSCULAR VOLUME 67 fL (79.0-98.0); MONOCYTES # (AUTO) 0.7 K/uL (0.0-1.0); MONOCYTES % (AUTO) 4.1 % (1.7-9.3); NEUTROPHILS # (AUTO) 14.9 K/uL (1.8-7.7); NEUTROPHILS % (AUTO) 91.1 % (40.0-70.0); PLATELET COUNT (AUTO) 332 K/uL (130-430); RED BLOOD CELL COUNT(AUTO) 4.45 MIL/uL (4.2-6.2); RED CELL DISTRIBUTION WIDTH 16.3 % (9.0-15.0); WHITE BLOOD COUNT (AUTO) 16.4 K/uL (4.8-10.8)
[2022-11-30 05:41] LABS: ALANINE AMINOTRANSFERASE 16 U/L (12-78); ALBUMIN 2.8 g/dL (3.4-4.8); ANION GAP 14 (5-15); ASPARTATE AMINOTRANSFERASE 19 U/L (10-37); CALCIUM 7.5 mg/dL (8.4-11.0); CARBON DIOXIDE 20 mmol/L (23-29); CHLORIDE 105 mmol/L (98-107); CREATININE 1.28 mg/dL (0.55-1.30); GLUCOSE 160 mg/dL (74-106); POTASSIUM 3.9 mmol/L (3.5-5.1); SODIUM SERUM 139 mmol/L (136-145); TOTAL BILIRUBIN 0.8 mg/dL (0.0-1.0); UREA NITROGEN, BLOOD 34 mg/dL (8-21)
[2022-11-30] MEDS: FUROSEMIDE 20 MG/2 ML VIAL IVP SCH ×2 (09:00→21:25)
[2022-11-30] MEDS: methIMAzole 5 MG TABLET PO SCH (09:58)
[2022-11-30] MEDS: amLODIPine BESYLATE 10 MG TABLET PO SCH (09:59)
[2022-11-30] MEDS: AMIODARONE HCL 200 MG TABLET PO SCH ×2 (09:59→14:32)
[2022-11-30] MEDS: HEPARIN SODIUM,PORCINE 5,000 UNITS/ML VIAL SUBCUT SCH (10:00)
[2022-11-30] MEDS ORDERED: MORPHINE SULFATE IN 0.9 % NACL 100 ML IV PRN ×2 (10:30→16:45)
[2022-11-30] MEDS ORDERED: cefTRIAXone 1 GM IVPB PREMIX 50 ML IV SCH (14:00)
[2022-11-30] MEDS ORDERED: LORazepam 2 MG/ML VIAL IV PRN (16:45)
[2022-12-01 04:00] VITALS: BP_SYST 118; PULSE 82; RESP 16; TEMP 97.4; O2SAT 98
[2022-12-01 07:45] VITALS: BP_SYST 118; PULSE 82; O2SAT 96
[2022-12-01 08:00] VITALS: BP_SYST 109; PULSE 127; RESP 18; TEMP 97.2; O2SAT 96
[2022-12-01] MEDS: FUROSEMIDE 20 MG/2 ML VIAL IVP SCH ×2 (09:41→21:00)
[2022-12-01 12:00] VITALS: BP_SYST 111; PULSE 101; RESP 18; TEMP 98.7; O2SAT 96
[2022-12-01 16:00] VITALS: BP_SYST 108; PULSE 98; RESP 18; TEMP 97.8; O2SAT 96
[2022-12-01 20:00] VITALS: BP_SYST 98; PULSE 136; RESP 18; TEMP 97.2; O2SAT 89
[2022-12-02 00:13] VITALS: BP_SYST 94; PULSE 130; RESP 18; TEMP 97; O2SAT 88
[2022-12-02 04:00] VITALS: BP_SYST 95; PULSE 134; RESP 18; TEMP 98.2; O2SAT 87
[2022-12-02 08:00] VITALS: BP_SYST 103; PULSE 155; RESP 18; TEMP 97.7; O2SAT 88
[2022-12-02] MEDS: FUROSEMIDE 20 MG/2 ML VIAL IVP SCH (08:49)
== END 2022-12-02 14:15 | DRG 682 ==
LOC: SED 09:31 → STU 13:13 → SMU 11-25 06:00 → STU 11-26 09:09 → SIC 11-26 09:14 → SMU 11-30 21:45
PROVIDERS: ADMIT General Practice; ATTEND General Practice
PROC: 5A0935A Assistance with Respiratory Ventilation, Less than 24 Consecutive Hours, High Flow/Velocity Cannula (ICD-10-PCS; principal; 2022-11-26)
PROC: 5A0935A Assistance with Respiratory Ventilation, Less than 24 Consecutive Hours, High Flow/Velocity Cannula (ICD-10-PCS; 2022-11-27)
PROC: 5A0935A Assistance with Respiratory Ventilation, Less than 24 Consecutive Hours, High Flow/Velocity Cannula (ICD-10-PCS; 2022-11-28)
PROC: 5A0935A Assistance with Respiratory Ventilation, Less than 24 Consecutive Hours, High Flow/Velocity Cannula (ICD-10-PCS; 2022-11-29)
PROC: 5A0935A Assistance with Respiratory Ventilation, Less than 24 Consecutive Hours, High Flow/Velocity Cannula (ICD-10-PCS; 2022-11-30)
DX: N17.0 Acute kidney failure with tubular necrosis (principal); I21.A1 Myocardial infarction type 2; J96.01 Acute respiratory failure with hypoxia; I50.33 Acute on chronic diastolic (congestive) heart failure; N39.0 Urinary tract infection, site not specified; D63.8 Anemia in other chronic diseases classified elsewhere; G30.9 Alzheimer's disease, unspecified; I35.0 Nonrheumatic aortic (valve) stenosis; K21.9 Gastro-esophageal reflux disease without esophagitis; I27.20 Pulmonary hypertension, unspecified; I11.0 Hypertensive heart disease with heart failure; Z66 Do not resuscitate; I48.0 Paroxysmal atrial fibrillation; E05.90 Thyrotoxicosis, unspecified without thyrotoxic crisis or storm; F02.80 Dementia in other diseases classified elsewhere, unspecified severity, without behavioral disturbance, psychotic disturbance, mood disturbance, and anxiety; Z95.2 Presence of prosthetic heart valve; Z90.710 Acquired absence of both cervix and uterus; Z87.440 Personal history of urinary (tract) infections; Z90.49 Acquired absence of other specified parts of digestive tract; Z95.5 Presence of coronary angioplasty implant and graft; Z79.01 Long term (current) use of anticoagulants
CPT/HCPCS: 36415; 36600; 70450-TC; 71045; 71275; 76376; 80048; 80053; 81000; 82009; 82550; 82607; 82728; 82746; 82803; 83037; 83540; 83550; 83605; 83690; 83735; 83880; 84100; 84439; 84443; 84484; 85025; 85379; 85610-TC; 85730-TC; 87040; 87081; 87086; 93005; 93306; 93970; 94640; 94760; 96365; 97110-GP; 97112-GP; 97116-GP; 97530-GP; 99285; G0378; J0696; J1644; J1940; J2060; J2270; J3490; J7060; Q9967